=== PATIENT | female | born 1995 | race Caucasian/White ===

== ENCOUNTER 2017-02-10 11:36 | Emergency (ER) | payer OTHER ==
[~2017-02-10] VITALS: Ht 165.1 cm; Wt 83.2 kg
[~2017-02-10 11:36] MED LIST: ATARAX 25MG25 MG/TAB PO; PREDNISONE20 MG PO; SYNTHROID0.2 MG/TAB PO
[2017-02-10 11:38] VITALS: BP 151/62; PULSE 69; TEMP 98.6
== END 2017-02-10 13:44 | disposition home or self-care (01) ==
LOC: COL.ER 11:36
DX: S20.211A Contusion of right front wall of thorax, initial encounter (principal); E03.9 Hypothyroidism, unspecified; W18.40XA Slipping, tripping and stumbling without falling, unspecified, initial encounter; W22.09XA Striking against other stationary object, initial encounter; Y92.69 Other specified industrial and construction area as the place of occurrence of the external cause; Y99.0 Civilian activity done for income or pay

== ENCOUNTER → 2017-06-14 | Outpatient (CLI) | payer BC ==
[2017-06-14 17:13] LABS: THYROID STIMULATING HORMONE < 0.015 uIU/mL (0.465-4.680)
== END ==
LOC: COL.LAB 15:25
DX: E03.9 Hypothyroidism, unspecified (principal)